=== PATIENT | female | born 1950 | race Caucasian/White ===

== ENCOUNTER 2017-04-26 20:02 | Emergency (ER) | payer MEDICARE ==
[2017-04-26] MEDS ORDERED: MOTRIN 600 MG PO ONE (20:19)
[2017-04-26] MEDS ORDERED: MOTRIN 600 MG ONE (20:23)
--- NOTE | 2017-04-26 20:26 | ERPHSYRPT ---
- History of Present Illness Time Seen by Provider: 04/26/17 20:15 Source: patient Exam Limitations: clinical condition Patient Subjective Stated Complaint: "I twisted my right ankle between 6 and 630 tonight and it really hurts." Triage Nursing Assessment: Pt alert and oriented x 3, skin pwd pt able to bear a little weight on her right ankle, no swelling noted. CSM X 4. Physician History: PATIENT TWISTED HER RIGHT ANKLE ON INSTEP IN DOOR WAY HAS PAIN WITH SWELLING, WORSE UPON WEIGHT BEARING. DENIES DEFORMITY OR ECCHYMOSIS Method of Injury: twisted Occurred: this evening Quality: constant Severity of Pain-Max: moderate Severity of Pain-Current: moderate Lower Extremities Pain: ankle: right Modifying Factors: Improves With: movement Associated Symptoms: unable to bear weight Allergies/Adverse Reactions: No Known Drug Allergies Allergy (Verified 04/26/17 20:09) Hx Tetanus, Diphtheria Vaccination/Date Given: Yes Hx Influenza Vaccination/Date Given: No Hx Pneumococcal Vaccination/Date Given: No Immunizations Up to Date: Yes - Review of Systems Constitutional: No Fever, No Chills Eyes: No Symptoms Ears, Nose, & Throat: No Symptoms Respiratory: No Cough, No Dyspnea Cardiac: No Chest Pain, No Edema, No Syncope Abdominal/Gastrointestinal: No Abdominal Pain, No Nausea, No Vomiting, No Diarrhea Genitourinary Symptoms: No Dysuria Musculoskeletal: Injury, Joint Pain, Joint Swelling, No Back Pain, No Neck Pain Skin: No Rash Neurological: No Dizziness, No Focal Weakness, No Sensory Changes Psychological: No Symptoms Endocrine: No Symptoms All Other Systems: Reviewed and Negative - Past Medical History Pertinent Past Medical History: Yes Neurological History: No Pertinent History ENT History: No Pertinent History Cardiac History: No Pertinent History Respiratory History: No Pertinent History Endocrine Medical History: Hypothyroidism, Thyroid Cancer, Other Musculoskeletal History: No Pertinent History GI Medical History: Gallbladder Disease History: Other Psycho-Social History: No Pertinent History Female Reproductive Disorders: No Pertinent History Other Medical History: PHELBITIS - Past Surgical History Past Surgical History: Yes Neuro Surgical History: No Pertinent History Cardiac: No Pertinent History Respiratory: No Pertinent History Gastrointestinal: No Pertinent History Genitourinary: No Pertinent History Musculoskeletal: No Pertinent History Female Surgical History: No Pertinent History Other Surgical History: THYROID REMOVED DUE TO CA - Social History Smoking Status: Never smoker Exposure to second hand smoke: No Drug Use: none Patient Lives Alone: No - Female History Hx Last Menstrual Period: menopause Hx Now: No - Nursing Vital Signs Nursing Vital Signs: Initial Vital Signs Temperature 98.9 F 04/26/17 20:03 Pulse Rate 76 04/26/17 20:03 Respiratory Rate 16 04/26/17 20:03 Blood Pressure 143/79 04/26/17 20:03 Pain Scale Pain Intensity 5 - Physical Exam General Appearance: no apparent distress Ankle Exam: left ankle: soft tissue tenderness (FROM WITH PAIN, NO ECCHYMOSIS, MINIMAL SWELLING, NO JOINT LAXITY UPON VARUS, VALGUS STRESS, RIGHT PEDIS PULSE 2 +) SpO2 Interpretation: normal SpO2: 98 - Radiology Exams Right Ankle X-ray Interpretation: Interpreted by me, Negative, No Fracture (NO DISLOCATION) Ordered Tests: Active Orders 24 hr Category Date Time Status Splint STAT Care 04/26/17 20:51 Ordered ANKLE (3 VIEWS) Stat Exams 04/26/17 20:19 Taken Medication Summary Discontinued Medications Generic Name Dose Route Start Last Admin Trade Name Freq PRN Reason Stop Dose Admin Ibuprofen 600 mg 04/26/17 20:19 04/26/17 20:24 Motrin 600 Mg PO 04/26/17 20:20 600 mg STAT ONE Administration Ibuprofen Confirm 04/26/17 20:23 Motrin 600 Mg Administered 04/26/17 20:24 Dose 600 mg .ROUTE .STK-MED ONE - Progress Progress: pain not gone completely Progress Note: 04/26/17 20:52 PATIENT GIVEN MOTRIN 600MG ORALLY Counseled pt/family regarding: diagnosis, need for follow-up, rad results - Departure Time of Disposition: 21:00 Departure Disposition: Home Clinical Impression: RIGHT ANKLE STRAIN Condition: Stable Critical Care Time: No Referrals: MARIA LUISA BARDALES MD [Primary Care Provider] - Additional Instructions: AMBULATE USING CRUTCHES NONWEIGHT BEARING RIGHT FOOT FOR 5 DAYS. ELEVATE FOOT AND APPLY ICE OVER ANKLE SWELLING EVERY 4 HOURS, 30 MINUTES FOR 48 HOURS. MOTRIN 600MG EVERY 6 HOURS FOR PAIN NEEDED. CONSULT YOUR FAMILY PHYSICIAN FOR FOLLOWUP IN 1 WEEK. Prescriptions: Ibuprofen 600 mg PO Q6H PRN PRN #15 tablet PRN Reason: Pain
[2017-04-26 21:33] VITALS: BP 149/70; PULSE 80; O2SAT 99
--- NOTE | 2017-04-27 08:54 | XRAY ---
Indication: Pain following injury. Comparison: None 3 views of the right ankle demonstrates tiny heel spurs. No other bony, articular, or soft tissue abnormalities.
== END 2017-04-26 21:25 | disposition home or self-care (01) ==
LOC: ED 20:02
DX: S93.401A Sprain of unspecified ligament of right ankle, initial encounter (principal); X50.0XXA Overexertion from strenuous movement or load, initial encounter
CPT/HCPCS: 73610; 99283; A9270-GY

== ENCOUNTER 2017-12-13 15:25 | Emergency (ER) | payer MEDICARE ==
[2017-12-13] MEDS ORDERED: MOTRIN 600 MG PO ONE (16:18)
--- NOTE | 2017-12-13 16:47 | XRAY ---
Indication: Lateral ankle pain following fall. Comparison: April 26, 2017. 3 views of the right ankle demonstrate stable tiny heel spurs. No new/acute bony, articular, or soft tissue abnormalities.
--- NOTE | 2017-12-13 17:05 | ERPHSYRPT ---
- History of Present Illness Time Seen by Provider: 12/13/17 16:13 Source: patient, family Patient Subjective Stated Complaint: right ankle injury with pain radiating to outer foot and toes Triage Nursing Assessment: pt to er in wheelchair, fell at home at approximately 1130 this date on her deck, denies dizziness, denies weakness or pain prior to fall Physician History: CC: right ankle pain Hx: 67 y/o patient of Dr Bardales. She slipped at home on deck step and twisted the right ankle. PAin with weight bearing. No other injuries. No neck or back pain. No head injury. PAin moderate and aching. ALL: None Meds: None Allergies/Adverse Reactions: No Known Drug Allergies Allergy (Verified 04/26/17 20:09) Hx Tetanus, Diphtheria Vaccination/Date Given: No Hx Influenza Vaccination/Date Given: Yes Hx Pneumococcal Vaccination/Date Given: Yes - Review of Systems Constitutional: No Symptoms Eyes: No Vision Changes Cardiac: No Chest Pain Abdominal/Gastrointestinal: No Abdominal Pain, No Nausea, No Vomiting Musculoskeletal: Joint Pain (right ankle), No Back Pain, No Neck Pain Neurological: No Focal Weakness, No Headache, No Parasthesia - Past Medical History Pertinent Past Medical History: Yes Neurological History: No Pertinent History ENT History: No Pertinent History Cardiac History: No Pertinent History Respiratory History: No Pertinent History Endocrine Medical History: No Pertinent History Musculoskeletal History: No Pertinent History GI Medical History: No Pertinent History History: No Pertinent History Psycho-Social History: No Pertinent History Female Reproductive Disorders: No Pertinent History Other Medical History: thyroid cancer 1991 with thyroid removal (90%) - Past Surgical History Past Surgical History: Yes Neuro Surgical History: No Pertinent History Cardiac: No Pertinent History Respiratory: No Pertinent History Gastrointestinal: No Pertinent History Genitourinary: No Pertinent History Musculoskeletal: No Pertinent History Female Surgical History: Hysterectomy, Tubal Ligation Other Surgical History: 90% of thyroid removed due to cancer - Social History Smoking Status: Never smoker Exposure to second hand smoke: No Drug Use: none Patient Lives Alone: No - Nursing Vital Signs Nursing Vital Signs: Initial Vital Signs Temperature 97.7 F 12/13/17 15:37 Pulse Rate 82 12/13/17 15:37 Respiratory Rate 20 12/13/17 15:37 Blood Pressure 113/62 12/13/17 15:37 O2 Sat by Pulse Oximetry 100 12/13/17 15:37 Pain Scale Pain Intensity 7 - Physical Exam General Appearance: alert Eyes, Ears, Nose, Throat Exam: normal ENT inspection, moist mucous membranes Neck Exam: normal inspection, non-tender, supple, No tenderness midline Cardiovascular/Respiratory Exam: regular rate/rhythm Gastrointestinal/Abdominal Exam: non-tender, soft Neuro/Tendon Exam: normal sensation, normal motor functions Mental Status Exam: alert, oriented x 3 Skin Exam: warm, dry, No rash SpO2 Interpretation: normal SpO2: 100 Oxygen Delivery: Room Air - Course Nursing assessment & vital signs reviewed: Yes Ordered Tests: Active Orders 24 hr Category Date Time Status Nixon Bandage Application -[facility] STAT Care 12/13/17 16:59 Active Cold Application STAT Care 12/13/17 16:18 Active Splint STAT Care 12/13/17 16:59 Active ANKLE (3 VIEWS) Stat Exams 12/13/17 16:18 Completed Medication Summary Discontinued Medications Generic Name Dose Route Start Last Admin Trade Name Freq PRN Reason Stop Dose Admin Ibuprofen 600 mg 12/13/17 16:18 Motrin 600 Mg PO 12/13/17 16:19 STAT ONE - Progress Progress Note: 12/13/17 17:02 right ankle: 3 views of the right ankle demonstrate stable tiny heel spurs. No new/acute bony, articular, or soft tissue abnormalities. She has crutches in the truck. Will use nixon, air cast and ibuprofen. Counseled pt/family regarding: diagnosis, need for follow-up, rad results - Departure Time of Disposition: 17:03 Departure Disposition: Home Clinical Impression: Right ankle sprain Qualifiers: Encounter type: initial encounter Involved ligament of ankle: unspecified ligament Qualified Code(s): S93.401A - Sprain of unspecified ligament of right ankle, initial encounter Condition: Stable Critical Care Time: No Referrals: MARIA LUISA BARDALES MD [Primary Care Provider] - Instructions: Ankle Sprain (DC), How to Use Crutches Additional Instructions: CRUTCHES 1. Hold your head up and keep your back straight to help keep your balance. 2. When standing, the top of the crutches should fit 2-3 inches below your armpits. 3. Put your weight on the handgrip with your hands; never put any pressure on your armpits. 4. Go slow until you get your balance and become accustomed to crutch walking. 5. Place each crutch tip 4-6 inches to the front and side of each foot. Move both crutch tips forward on each side 12-15 inches from the tip of your injured leg, while simultaneously moving your injured leg 12-15 inches. Move your uninjured leg forward to the level of the crutch tips. SPRAINS/STRAINS/CONTUSIONS 1. Rest the affected area as much as possible for the next few days. 2. Apply ice to the affected area for 20-30 minutes at a time, several times a day. 3. If you receive an elastic wrap, wear it only while awake for comfort and support. Re-wrap the elastic wrap if it feels too tight or too loose. 4. If swelling is present, elevate the affected part above the level of the heart for at least 2 to 3 days. 5. Use splints, slings, or crutches as instructed. 6. Watch for severe swelling, coldness, numbness, and discoloration of the fingers and toes. See your family physician or return to the emergency department if any of these are noted. Ibuprofen 600mg every 6 hours for pain with food. Use crutches, nixon, air cast. Follow up with Dr Bardales in 3-4 days as needed.
[2017-12-13] MEDS ORDERED: MOTRIN 600 MG ONE (17:09)
[2017-12-13 17:12] VITALS: BP 119/76; PULSE 68; O2SAT 96
== END 2017-12-13 17:53 | disposition home or self-care (01) ==
LOC: ED 15:25
DX: S93.401A Sprain of unspecified ligament of right ankle, initial encounter (principal); M25.571 Pain in right ankle and joints of right foot; X50.1XXA Overexertion from prolonged static or awkward postures, initial encounter
CPT/HCPCS: 73610; 99283; A9270-GY

== ENCOUNTER 2018-10-07 21:04 | Emergency (ER) | payer MEDICARE ==
[2018-10-07 22:00] LABS: BASOPHIL % 0.5 % (0.0-0.4); Basophil (Absolute #) 0.03 (0-0.4); Eosinophil % 2.7 % (0.00-5.0); Eosinophil (Absolute #) 0.16 (0-0.5); Granulocyte Absolute (ANC) 3.64 (1.4-6.9); Granulocytes % 60.7 % (36.0-66.0); Hematocrit 41.1 % (35-47); Hemoglobin 12.8 gm/dl (12.0-16.0); Lymphocyte (Absolute #) 1.73 (1.0-4.6); Lymphocytes % 28.9 % (24.0-44.0); Mean Cell Volume 94.1 fl (78-100); Mean Corpuscular Hemoglobin 29.3 pg (26-32); Mean Corpuscular Hgb Concent. 31.1 g/dl (32-36); Mean Platelet Volume 9.4 fl (6-9.5); Monocyte (Absolute #) 0.43 (0.0-1.3); Monocytes % 7.2 % (0.0-12.0); Platelet Count 262 K/mm3 (150-450); Red Blood Count 4.37 M/mm3 (4.1-5.4); Red Cell Distribution Width 13.6 % (11.5-14.0)
[2018-10-07 22:07] LABS: INR 1.01 (0.8-3.0); PROTIME 11.8 SECONDS (9.95-12.35)
--- NOTE | 2018-10-07 23:23 | ERPHSYRPT ---
- History of Present Illness Time Seen by Provider: 10/07/18 21:36 Source: patient Exam Limitations: clinical condition Patient Subjective Stated Complaint: Right lower leg pain/redness Triage Nursing Assessment: Patient ambulated back to ED and transferred self to bed. Patietn A+O X 3. Patient't skin pink, warm and dry. Patient states her right outer leg is painful to touch and red. Patient's right outer leg noted to be slightly swollen, warm and red. Pedal pulse present with capillary refill WNL. Patient states she has a hx of DVT. Physician History: PATIENT WITH A HISTORY OF PHLEBITIS COMPLAINS OF A RED SWOLLEN AREA OVER HER RIGHT LOWER OUTER [place]EN[place], ABOVE HER ANKLE FOR 3 DAYS, TENDERNESS UPON PALPATION. DENIES CHEST PAIN, DYSPNEA OR PAIN UPON AMBULATION. Method of Injury: unknown Occurred: days ago Quality: other (PAIN ONLY PALPATION) Severity of Pain-Max: none Severity of Pain-Current: none Lower Extremities Pain: knee: right Modifying Factors: Improves With: other (PAIN UPON PALPATION) Associated Symptoms: none Allergies/Adverse Reactions: No Known Drug Allergies Allergy (Verified 10/07/18 21:28) Hx Tetanus, Diphtheria Vaccination/Date Given: No Hx Influenza Vaccination/Date Given: Yes Hx Pneumococcal Vaccination/Date Given: Yes Immunizations Up to Date: Yes - Review of Systems Constitutional: No Fever, No Chills Eyes: No Symptoms Ears, Nose, & Throat: No Symptoms Respiratory: No Symptoms, No Cough, No Dyspnea Cardiac: No Symptoms, No Chest Pain, No Edema, No Syncope Abdominal/Gastrointestinal: No Symptoms, No Abdominal Pain, No Nausea, No Vomiting, No Diarrhea Genitourinary Symptoms: No Symptoms, No Dysuria Musculoskeletal: Other (LOCALIZED SWELLING WITH REDNESS), No Back Pain, No Neck Pain Skin: No Rash Neurological: No Symptoms, No Dizziness, No Focal Weakness, No Sensory Changes Psychological: No Symptoms Endocrine: No Symptoms All Other Systems: Reviewed and Negative - Past Medical History Pertinent Past Medical History: Yes Neurological History: No Pertinent History ENT History: No Pertinent History Cardiac History: No Pertinent History Respiratory History: No Pertinent History Endocrine Medical History: No Pertinent History Musculoskeletal History: No Pertinent History GI Medical History: No Pertinent History History: No Pertinent History Psycho-Social History: No Pertinent History Female Reproductive Disorders: No Pertinent History Other Medical History: thyroid cancer 1991 with thyroid removal left side (90%) - Past Surgical History Past Surgical History: Yes Neuro Surgical History: No Pertinent History Cardiac: No Pertinent History Respiratory: No Pertinent History Gastrointestinal: No Pertinent History Genitourinary: No Pertinent History Musculoskeletal: No Pertinent History Female Surgical History: Hysterectomy, Tubal Ligation Other Surgical History: 90% of thyroid removed due to cancer on the left side - Social History Smoking Status: Never smoker Exposure to second hand smoke: No Drug Use: none Patient Lives Alone: No - Female History Hx Last Menstrual Period: Menopausal Hx Now: No - Nursing Vital Signs Nursing Vital Signs: Initial Vital Signs Temperature 97.7 F 10/07/18 21:29 Pulse Rate 72 10/07/18 21:29 Respiratory Rate 18 10/07/18 21:29 Blood Pressure 134/68 10/07/18 21:29 O2 Sat by Pulse Oximetry 99 10/07/18 21:29 Pain Scale Pain Intensity 0 - Physical Exam General Appearance: alert Eyes, Ears, Nose, Throat Exam: moist mucous membranes Neck Exam: normal inspection Cardiovascular/Respiratory Exam: chest non-tender, normal breath sounds, regular rate/rhythm, no respiratory distress Gastrointestinal/Abdominal Exam: non-tender Back Exam: normal inspection, No vertebral tenderness Hips Exam: bilateral: non-tender, normal inspection, normal range of motion Legs Exam: right leg: soft tissue tenderness (THERE IS A 2CM X 8MM, AREA SUPERIOR TO LATERAL MALLEOLUS OF RIGHT LOWER EXTREMITY, TENDER UPON PALPATION, NO CALF TENDERNESS, NEGATIVE HOMANN SIGN, PEDIS PULSE 2+) DTR - Lower Extremities Exam: knee (R): 2+, knee (L): 2+, ankle (R): 2+, ankle ( L): 2+ Neuro/Tendon Exam: normal sensation, normal motor functions Mental Status Exam: alert, oriented x 3, cooperative Skin Exam: normal color SpO2 Interpretation: normal SpO2: 97 - Radiology Ultrasound Exam Right Venous Lower Extremity Ultrasound: discussed w/radiologist (NEGATIVE FOR DVT OF THE RIGHT LOWER EXTREMITY) Ordered Tests: Active Orders 24 hr Category Date Time Status VENOUS UNILAT/LIMITED EXTREMIT [US] Stat Exams 10/07/18 Ordered CBC W DIFF Stat Lab 10/07/18 21:55 Completed PROTIME WITH INR Stat Lab 10/07/18 21:55 Completed Lab/Rad Data: Laboratory Result Diagrams 10/07/18 21:55 Laboratory Results 10/07/18 10/07/18 Range/Units 21:55 21:55 WBC 6.0 (4.0-10.5) K/mm3 RBC 4.37 (4.1-5.4) M/mm3 Hgb 12.8 (12.0-16.0) gm/dl Hct 41.1 (35-47) % MCV 94.1 (78-100) fl MCH 29.3 (26-32) pg MCHC 31.1 L (32-36) g/dl RDW 13.6 (11.5-14.0) % Plt Count 262 (150-450) K/mm3 MPV 9.4 (6-9.5) fl Gran % 60.7 (36.0-66.0) % Eos # (Auto) 0.16 (0-0.5) Absolute Lymphs (auto) 1.73 (1.0-4.6) Absolute Monos (auto) 0.43 (0.0-1.3) Lymphocytes % 28.9 (24.0-44.0) % Monocytes % 7.2 (0.0-12.0) % Eosinophils % 2.7 (0.00-5.0) % Basophils % 0.5 (0.0-0.4) % Absolute Granulocytes 3.64 (1.4-6.9) Basophils # 0.03 (0-0.4) PT 11.8 (9.95-12.35) SECONDS INR 1.01 (0.8-3.0) - Progress Counseled pt/family regarding: lab results, diagnosis, need for follow-up, rad results - Departure Time of Disposition: 23:31 Departure Disposition: Home Clinical Impression: PHLEBITIS RIGHT LOWER EXTREMITY Condition: Stable Critical Care Time: No Referrals: MARIA LUISA BARDALES MD [Primary Care Provider] - Additional Instructions: TAKE OVER THE COUNTER MOTRIN 400-600MG EVERY 6 HOURS NEEDED FOR PAIN. ANTIBIOTIC KEFLEX 500MG EVERY 8 HOURS FOR 10 DAYS. CONSULT YOUR PRIMARY CARE PROVIDER IN 1 WEEK FOR FOLLOWUP. Prescriptions: Cephalexin Mh 500 mg [Keflex 500 mg] 500 mg PO TID #30 capsule
[2018-10-07 23:36] VITALS: BP 111/73; PULSE 74; O2SAT 95
--- NOTE | 2018-10-08 07:55 | XRAY ---
Indication: Lateral ankle erythema and tenderness. Two-dimensional sonogram and color Doppler imaging of the major venous vessels of the right leg was performed. Comparison: None No thrombus seen in the examined deep venous vessels of the right leg including greater saphenous vein. Veins demonstrate normal compressibility. Venous waveforms are normal with and without augmentation. Targeted ultrasound over the lateral ankle demonstrates tiny superficial thrombophlebitis. Impression: 1. Lateral ankle superficial thrombophlebitis. 2. Right leg negative for DVT. Comment: Preliminary report was given.
== END 2018-10-07 23:42 | disposition home or self-care (01) ==
LOC: ED 21:04
DX: I80.3 Phlebitis and thrombophlebitis of lower extremities, unspecified (principal); M79.661 Pain in right lower leg; Z85.850 Personal history of malignant neoplasm of thyroid
CPT/HCPCS: 36415; 85025; 85610; 93971; 99283

== ENCOUNTER 2018-11-03 06:06 | Day surgery (SDC) | payer MEDICARE ==
[2018-11-03] MEDS ORDERED: DIPRIVAN 200 MG/20 ML IV ONE (06:07)
[2018-11-03] MEDS ORDERED: Lactated Ringers 1,000 ML IV SCH (06:30)
[2018-11-03 08:06] VITALS: BP 130/62; PULSE 70; O2SAT 99
--- NOTE | 2018-11-03 09:41 | OP ---
SURGERY DATE/TIME: 11/03/2018 0705 PREOPERATIVE DIAGNOSIS: Positive Cologuard testing. POSTOPERATIVE DIAGNOSES: 1) Cecal polyp. 2) Mild diverticulosis. PROCEDURE: Colonoscopy with hot forceps polypectomy. SURGEON: Roman Lockhart M.D. ANESTHESIA: MAC by Aldo Castillo CRNA. ESTIMATED BLOOD LOSS: Minimal. SPECIMENS: Hot forceps polypectomy from the cecum. DESCRIPTION OF PROCEDURE: After informed written consent was obtained, the patient was taken to the endoscopy suite. She underwent monitored anesthesia and digital rectal exam showed normal sphincter tone and no internal lesions. The scope was inserted into the rectum and sequentially the entire colonic mucosa was traversed. The level of cecum was reached and verified with direct visualization of ileocecal valve. In the cecal region there was a small sessile polyp which was grasped with forceps and cauterized at the base and removed in its entirety and sent for pathology testing. The area was noted to be hemostatic with complete removal of the polyp following. Upon withdrawal there were no obvious mucosal abnormalities other than scattered diverticula throughout most of the length of the colon. Prior to withdrawal retroflexion was performed and showed no internal lesions. The scope was removed and the patient was transferred to the recovery room in good condition. I have advised that she follow up in a week for pathology results.
== END 2018-11-03 08:30 | disposition home or self-care (01) ==
LOC: SDC 06:06
PROVIDERS: ATTEND Family Medicine
DX: K63.5 Polyp of colon (principal); K57.30 Diverticulosis of large intestine without perforation or abscess without bleeding
CPT/HCPCS: J2704

== ENCOUNTER 2023-12-15 05:59 | Day surgery (SDC) | payer MEDICARE ==
[2023-12-15] MEDS: Lactated Ringers 1,000 ML IV SCH (06:33)
[2023-12-15] MEDS ORDERED: DIPRIVAN 200 MG/20 ML IV ONE (08:08)
[2023-12-15] MEDS ORDERED: Versed 2 MG/2 ML Injection ONE (08:08)
[2023-12-15] MEDS ORDERED: Xylocaine-Mpf 2% 5 Ml Vial ONE (08:08)
--- NOTE | 2023-12-15 09:03 | OP ---
SURGERY DATE/TIME: 12/15/2023 0806 PREOPERATIVE DIAGNOSIS: Screening colonoscopy. POSTOPERATIVE DIAGNOSIS: Colon polyps x4. PROCEDURE: Colonoscopy. SURGEON: Roman Lockhart M.D. ANESTHESIA: MAC by Adalberto Davis CRNA. QUANTITATIVE BLOOD LOSS: Minimal. SPECIMENS: Four hot forceps polypectomies. DESCRIPTION OF PROCEDURE: After informed written consent was obtained, the patient was taken to the endoscopy suite. She was placed in left lateral decubitus position and anesthesia was titrated to desired level of consciousness. Digital rectal exam showed normal sphincter tone and no internal lesions. The scope was inserted into the rectum and sequentially the entire colonic mucosa was traversed. The level of cecum was reached and verified with direct visualization of the ileocecal valve. Upon withdrawal careful mucosal inspection revealed one small sessile polyp in the distal sigmoid colon which was grasped with forceps, cauterized and removed in its entirety with no bleeding following removal and sent for pathology testing. Upon further withdrawal, there were three sessile polyps in the rectal area all in close proximity likewise was grasped with forceps, cauterized and removed in entirety. These were all sent in the same container for pathology. The remainder of the exam was unremarkable. Retroflexion showed no internal lesions. The scope was removed and the patient was transferred to the recovery room in good condition.
[2023-12-15 09:10] VITALS: TEMP 96.7
[2023-12-15 09:22] VITALS: BP 112/66; PULSE 57; RESP 18; O2SAT 99
== END 2023-12-15 10:17 | disposition home or self-care (01) ==
LOC: SDC 05:59
PROVIDERS: ATTEND Family Medicine
DX: Z12.11 Encounter for screening for malignant neoplasm of colon (principal); K63.5 Polyp of colon
CPT/HCPCS: 99100; J2250; J2704